=== PATIENT | male | born 1955 | race Caucasian/White ===

== ENCOUNTER 2023-11-29 06:12 | Day surgery (SDC) | payer MEDICARE, OTHER ==
[2023-11-27 13:59] VITALS: BMI 25.8
[~2023-11-29 06:12] MED LIST: EPINEPHrine 0.3 MG in Ophthalmic Irrigation Solution 500 ML IRR SCH
[2023-11-29] MEDS ORDERED: Cyclopentolate 2% Opth Drop 15 ML BOT ONE (06:27)
[2023-11-29] MEDS ORDERED: PHENYLephrine 2.5% Ophth Soln 15 ml Bottle ONE (06:27)
[2023-11-29] MEDS ORDERED: Midazolam HCl 2 mg/2 ml Vial ONE (06:40)
[2023-11-29] MEDS ORDERED: fentaNYL 50 mcg/mL 1 mL Vial ONE (06:51)
[2023-11-29] MEDS ORDERED: PROPOFOL 20 ML ONE (06:51)
[2023-11-29] MEDS ORDERED: Lidocaine 1% PF 5 ML VIAL ONE ×2 (06:52→07:13)
[2023-11-29] MEDS ORDERED: Dexamethasone 4 mg/ml Vial ONE ×2 (07:13→07:30)
[2023-11-29] MEDS ORDERED: Lidocaine 4% PF 5 ML AMP ONE (07:13)
[2023-11-29] MEDS ORDERED: CEFAZOLIN 1 GM VIAL ONE (07:13)
[2023-11-29] MEDS ORDERED: Bupivacaine 0.75% 10 ML VIAL ONE (07:13)
== END 2023-11-29 08:45 | disposition home or self-care (01) ==
LOC: SDC 06:12
PROVIDERS: ATTEND Ophthalmology Retina Specialist
PROC: 08N53ZZ Release Left Vitreous, Percutaneous Approach (ICD-10-PCS; principal; 2023-11-29)
DX: H35.372 Puckering of macula, left eye (principal); H43.822 Vitreomacular adhesion, left eye
CPT/HCPCS: 67041; J0171; J1100; J2250; J2704; J3010; 67025; J0690; J3490